=== PATIENT | male | born 1970 | race Caucasian/White ===

== ENCOUNTER 2022-01-20 11:22 | Observation (INO) ==
--- NOTE | 2022-01-01 09:50 | PAT Medication Instructions ---
Medication Instructions Date of Service January 01, 2022 Home Medications Cinnamon 1 tab PO QAM Garlic 1 tab PO QAM Saw [place]vis[place] 1 tab PO QAM Vitamin D 1 tab PO HS Zinc 1 tab PO QAM multivitamin 1 tab PO QAM STOP taking 2 weeks before surgery Cinnamon 1 tab PO QAM Garlic 1 tab PO QAM Saw [place]viso 1 tab PO QAM DO NOT take the morning of surgery Zinc 1 tab PO QAM multivitamin 1 tab PO QAM Take evening before surgery Vitamin D 1 tab PO HS OTHERWISE NOTHING TO EAT OR DRINK AFTER MIDNIGHT Other Notes If you have any questions please call us at [phone] or [phone] or [phone] or [phone]
--- NOTE | 2022-01-05 14:25 | Anesthesiology Consultation ---
Date of Service January 05, 2022 Assessment & Plan (1) Encounter for pre-operative examination: - COVID screening: Per assessment on 01/05/2022: Travel screen negative, no known COVID-19 positive contacts or current COVID-19 related symptoms in past 2 weeks. Patient vaccinated. Surgeon arranging preop COVID testing, scheduled 01/16/2022. Awaiting results. Chart Review Chart Review: Acceptable Risk for Surgery and Patient seen in Pre Admission Testing Teaching & Discussion Pre-Anesthesia Teaching/Discussion Notes: Instructed NPO after midnight before surgery, except medications with 15 cc of water. Medication instructions provided according to the PAT guidelines. History Surgery Operation Date: 01/20/22 10:50 Proposed Procedures p Robotic Laparoscopic Assisted Radical Retropubic Prostatectomy, Possible Open, Possible Pelvic Lymph Node Dissection, Possible Suprapubic Tube Placement - Mina Caballero MD Height/Weight Height: 5 ft 9 in Weight: 89 kg Allergies Allergy/AdvReac Type Severity Reaction Status Date / Time No Known Allergies Allergy Verified 01/01/22 08:00 Medications Home Medications Medication Instructions Recorded Confirmed Last Taken Cinnamon 500 tab PO QAM 01/01/22 01/05/22 Unknown Garlic 1,000 mg PO QAM 01/01/22 01/05/22 Unknown Saw [place] 450 mg PO QAM 01/01/22 01/05/22 Unknown Vitamin D 25 mg PO HS 01/01/22 01/05/22 Unknown Zinc 50 mg PO QAM 01/01/22 01/05/22 Unknown multivitamin 1 tab PO QAM 01/01/22 01/01/22 Unknown Past Medical History Medical History Cancer Prostate History of COVID-19 Dx 08/2020 > loss of smell > resolved Patient denies h/o stroke, seizures, heart attack, heart failure, DM, HTN, blood clots or blood transfusions. Exercise / Class Metabolic Activity II 4-5 Yardwork/Stairs/Walk up hill (denies CP or SOB when walks 3 miles daily) Past Family History Family History Father Prostate cancer Non-Hodgkin lymphoma Grandfather Prostate cancer Past Surgical History Surgical History History of colonoscopy AGE 49 No history of previous surgery Past Anesthesia History No Hx of Anesthesia Complications and No Family Hx of Anesthesia Complications History of PONV No Hx of PONV and No Hx of Motion Sickness Social History Smoking Status: Never smoker Do You Dip or Chew Tobacco: No Hx Alcohol Use: No Hx Substance Use: No Review of Systems Patient denies chest pain, shortness of breath, dyspnea on exertion, snoring, witnessed apneas, reflux, fever, chills, cough, wheezing, or palpitations. Physical Exam Vital Signs Vitals BP 143/91 P 67 TEMP 98.3 SP02 100% on RA RESP 16 Physical Full cervical extension range of motion without pain Full TMJ range of motion TMD 3.5 finger breaths Mallampati Score 2 Dentition: intact, one missing teeth-left back tooth; denies chipped or loose teeth, caps/crowns, implants or bridges Lungs: normal respiratory effort. Clear throughout to auscultation, no adventiti ous breath sounds Cardiac: regular rate and rhythm, no murmurs noted Carotid arteries: negative bruit bilat Lab Results Anesthesia Preop Results Results Anesthesia Widget: WBC 6.16 K/uL (4.8-10.8) 01/05/22 Hgb 15.5 g/dL (14.0-18.0) 01/05/22 Hct 45.1 % (42-52) 01/05/22 Plt 293 K/uL (130-400) 01/05/22 Na 142 mmol/L (136-145) 01/05/22 K 4.0 mmol/L (3.5-5.1) 01/05/22 Cl 108 mmol/L (98-107) H 01/05/22 CO2 28 mmol/L (21-32) 01/05/22 BUN 18 mg/dl (6-23) 01/05/22 Creat 1.04 mg/dl (0.6-1.4) 01/05/22 Glucose Level 101 mg/dl (70-99(Fasting)) H 01/05/22 PT 11.3 Seconds (9.0-12.0) 01/05/22 PTT 36.4 Seconds (21.0-31.0) H 01/05/22 INR 1.1 (0.9-1.1) 01/05/22 Urine Color Yellow 01/05/22 Urine Appearance Clear (Clear) 01/05/22 Urine pH 5.5 (4.5-7.5) 01/05/22 Urine Specific [place] 1.022 (1.000-1.030) 01/05/22 Urine Protein Negative (Negative) 01/05/22 Urine Glucose (UA) Negative (Negative) 01/05/22 Urine Ketones Negative (Negative) 01/05/22 Urine Blood Trace (Negative) H 01/05/22 Urine Nitrite Negative (Negative) 01/05/22 Urine Bilirubin Negative (Negative) 01/05/22 Urine Urobilinogen Negative (Negative) 01/05/22 Urine Leukocyte Esterase Negative (Negative) 01/05/22 Urine WBC (Auto) 0 /hpf (0-5) 01/05/22 Urine RBC (Auto) 0-4 /hpf (0-4) 01/05/22 Urine Hyaline Casts (Auto) 0 /lpf (0-5) 01/05/22 Urine Epithelial Cells (Auto) 0-5 /lpf (0-5) 01/05/22 Urine Bacteria (Auto) Negative (Negative) 01/05/22 Blood Type AB Positive 01/05/22 Antibody Screen NEGATIVE 01/05/22 Testing Electrocardiogram Date: 01/05/22 NSR, rate 63 bpm Chest X-Ray Date: 01/05/22 FINDINGS: PA and lateral chest radiographs are obtained. No prior studies are available for comparison at the time of dictation. The cardiomediastinal silhouette is unremarkable. The lungs and pleural spaces are clear. There is no pneumothorax. The bony thorax appears intact. IMPRESSION: No active disease in the chest.
[~2022-01-20 11:22] MED LIST: HEPARIN SOD 5,000 UNIT/0.5 ML VIAL SQ SCH; LACTATED RINGER'S 1,000 ML IV SCH; MIDAZOLAM HCL 1 MG/ML 2ML VIAL ONE; ceFAZolin 2000MG 2,000 MG/15 ML SYR IV SCH; fentaNYL citrate 100 MCG/2 ML VIAL ONE
--- NOTE | 2022-01-20 11:36 | History & Physical Bridge Note ---
Date of Service January 20, 2022 History & Physical Bridge Note I have examined the patient, reviewed the History & Physical and in the interval since the performance of the History & Physical I have noted the following changes of clinical significance: no changes noted
[2022-01-20] MEDS ORDERED: fentaNYL citrate 100 MCG/2 ML VIAL IV PRN (12:07)
[2022-01-20] MEDS ORDERED: ATROPINE SULFATE 0.1 MG/ML 10ML SYR IV PRN (12:07)
[2022-01-20] MEDS ORDERED: ePHEDrine sulfate 50 MG/ML AMP IV PRN (12:07)
[2022-01-20] MEDS ORDERED: HYDROmorphone INJ 2 MG/ML SYR/VIAL IV PRN (12:07)
[2022-01-20] MEDS ORDERED: ONDANSETRON INJ 2 MG/ML 2 ML VIAL IV PRN ×2 (12:07→17:51)
[2022-01-20] MEDS ORDERED: BUPIVACAINE 0.5 % 5 MG/1 ML MPF 30ML VIAL ONE (12:24)
[2022-01-20] MEDS ORDERED: HYDROmorphone INJ 2 MG/ML SYR/VIAL ONE (12:57)
[2022-01-20] MEDS ORDERED: PROPOFOL IV EMULSION 10 MG/ML 20 ML VIAL IV ONE (13:01)
[2022-01-20] MEDS ORDERED: ONDANSETRON INJ 2 MG/ML 2 ML VIAL ONE ×2 (13:01→13:02)
[2022-01-20] MEDS ORDERED: ROCURONIUM BROMIDE 10 MG/ML 5 ML VIAL IV ONE ×5 (13:01→15:38)
[2022-01-20] MEDS ORDERED: NEOSTIGMINE METHYLSULFATE 1 MG/ML 10ML VIAL ONE (13:01)
[2022-01-20] MEDS ORDERED: LARYING-O-JET KIT (LTA) ONE (13:01)
[2022-01-20] MEDS ORDERED: GLYCOPYRROLATE 0.2 MG/ML VIAL ONE (13:01)
[2022-01-20] MEDS ORDERED: DEXAMETHASONE SOD INJ 4 MG/ML VIAL ONE (13:01)
[2022-01-20] MEDS ORDERED: LIDOCAINE 2% 2 ML VIAL/AMP(20MG/ML) INFIL ONE (13:01)
[2022-01-20] MEDS ORDERED: ePHEDrine sulfate 50 MG/ML SYR ONE (13:34)
[2022-01-20] MEDS ORDERED: PHENYLEPHRINE 100MCG/ML 5ML SYR ONE (13:34)
[2022-01-20] MEDS ORDERED: FLOSEAL HEMOSTATIC MATRIX 10ML TOP ONE (13:40)
[2022-01-20] MEDS ORDERED: SURGICEL ABSORB HEMOSTAT 2IN X 14IN TOP ONE (13:57)
--- NOTE | 2022-01-20 16:20 | Operative Report ---
[facility] Post Operative Report Pre & Post Diagnosis Operation Date: 01/20/22 12:45 Pre-Op Diagnosis: Prostate Cancer Post-Op Diagnosis: Prostate Cancer I identified the patient and participated in the time-out.: Yes Procedure Operation Date: 01/20/22 12:45 Actual Procedures p Robotic assisted Laparoscopic Prostatectomy(Not Applicable) - Mina Caballero MD Surgeon Brett Caballero MD Home Care Music Therapist Co-surgeon Dr. Tony Mejía; Home Care Music Therapist Ariella Vicente Estimated Blood Loss 100 Findings Consistent with Post-Op Diagnosis Specimens 1. Periprostatic fat 2. Prostate and seminal vesicles 3. Apical margin prostate Description of Procedure The patient was identified in the preoperative holding area, appropriate informed consents were reviewed and completed, and he was transported to the operating suite. Subcutaneous heparin was administered in the pre-operative holding area. Upon arrival in the operating suite, he received appropriate antibiotics and general anesthesia. He was positioned in dorsal lithotomy, a B&O suppository was inserted after digital rectal exam, and he was prepped and draped in standard fashion. A Rodriguez catheter was inserted in the sterile field. A Veress needle was passed per umbilicus with uniform insufflation of the abdomen to 15mmHg. He was placed in steep Trendelenburg position. A periumbilical incision was then made to accommodate a 12mm Visiport with 10mm 0degree laparoscope. Inspection of the abdomen was carried out, and there was no evidence of traumatic entry or injury secondary to the Veress needle. After confirming a clear anterior abdominal wall, ports were subsequently placed in standard robotic prostatectomy fashion without incident. To begin the robotic portion of the case, the left lateral aspect of the sigmoid was mobilized off of the left pelvic side wall to allow the pouch of Jorge Luis to be appropriately visualized. I then made an incision in the pouch of Jorge Luis, overlying the seminal vesicles. Both SVs as well as the ampullae of the vasa were entirely dissected, with the vasa transected 3cm from the prostate. The medial umbilical ligaments were then controlled with bipolar electrocautery just inferior to the umbilicus. Following cauterization, they were divided utilizing monopolar cautery. A peritoneal incision was carried from this loc ation to the medial aspect of the internal inguinal rings bilaterally with care to avoid opening through the ring. This incision was concluded when the vas deferens was reached. Dissection of the bladder and prostate off of the posterior aspect of the pubic arch was completed allowing full visualization of the prostate. The fat overlying the prostate was removed en bloc and passed off the table as a specimen labeled "periprostatic fat". The endopelvic fascia was cleared during this portion of the procedure, and subsequently opened - first on the right and then the left. The incision through the endopelvic fascia began near the prostate-bladder junction and was carried to the apex with extreme care to preserve all lateral levator musculature as well as the periurethral musculature and sphincter complex. I additionally preserved the puboprostatic ligaments. I then controlled the DVC with a 3-0 V-lock suture in overlapping/figure of 8 fashion. My attention then returned to the prostate, with identification of the bladder neck aided by gentle traction on the Rodriguez catheter and lateral to medial pressure at the presumed level of the bladder neck with the robotic instruments. An anterior cystotomy was made, the Rodriguez balloon deflated and the catheter guided through the incision to allow anterior retraction. I attempted to preserve maximal bladder neck musculature as I circumferentially dissected around the bladder neck. After incision through the posterior aspect of the mucosa, the dissection was carried through detrusor muscle until the bilateral ampullae of the vasa were identified. The previously dissected vasa and SVs were brought through the incision and used to elevated the prostate anteriorly. A posterior plane behind the prostate was then developed - splitting Denonvilliers's fascia. This dissection was carried as far as possible towards the apex as well as far as possible laterally. An incision in the lateral prostatic fascia was then made bilaterally to facilitate control of the vascular pedicles and preservation of the nerve bundles. Vasculature running along the posterior/lateral aspect of the prostate was preserved as well as the tissue containing the nerves. The pedicles were then controlled with a series of Weck clips. The apical attachments of the prostate were remaining at that stage. The DVC was divided after control with bipolar cautery over the prostate. Continuous inspection from anterior and lateral views allowed me to closely follow the apical contour of the prostate and maximally preserve urethral length and tissu e. I did take a small amount of tissue adjacent to the urethra and sent it off the table as a specimen labeled apical margin of the prostate. The prostate was entirely freed at that point, and collected in an EndoCatch bag before being moved out of the field of vision. Hemostasis was confirmed and anastomosis of the bladder and urethra was completed utilizing a double armed V- Lock stitch. A new Rodriguez catheter was inserted and the anastomosis tested with irrigation. There was no evidence of leak. The robot was undocked, the specimen extracted through expansion of the wagner- umbilical camera port. The fascia was closed with a series of 0-PDS figure of 8 stitches. The right insurance administrative assistant port was closed in two layers - with a figure of 8 0-Vicryl to reapproximate the fascia followed by 4-0 Monocryl to close the skin. Monocryl was used to close all other skin incisions. All wounds were dressed with Dermabond. The case was concluded and the patient taken to the PACU in stable condition. Dr. Tony Mejía served as a co-surgeon throughout this case. Ariella Vicente assisted at the bedside from incision to closure. I attest to the content of the Intraoperative Record and any orders documented therein. Any exceptions are noted below.
[2022-01-20 16:48] LABS: Basophils # (auto) 0.02 K/uL (0-0.2); Basophils % (auto) 0.2 %; Eosinophils # (auto) 0.01 K/uL (0-0.5); Eosinophils % (auto) 0.1 %; Hemoglobin 15.2 g/dL (14.0-18.0); Immature Granulocytes # (auto) 0.02 K/uL (0.00-0.02); Immature Granulocytes % (auto) 0.2 %; Lymphocytes % (auto) 4.6 %; Mean Corpuscular Hemoglobin 30.6 pg (25-34); Mean Corpuscular Volume 90.7 fL (80-100); Mean Platelet Volume 10.4 fL (7.4-10.4); Monocytes # (auto) 0.19 K/uL (0.11-0.59); Monocytes % (auto) 1.5 %; Neutrophils # (auto) 12.24 K/uL (1.4-6.5); Neutrophils % (auto) 93.4 %; Platelet Count 244 K/uL (130-400); RDW Coefficient of Variation 12.4 % (11.5-14.5); RDW Standard Deviation 41.2 fL (36.4-46.3); Red Blood Count 4.96 M/uL (4.7-6.1); White Blood Count 13.08 K/uL (4.8-10.8)
[2022-01-20 16:54] LABS: Mean Corpuscular Hgb Conc 33.8 g/dL (32-36)
--- NOTE | 2022-01-20 17:11 | Anesthesiology Progress Note ---
Date of Service January 20, 2022 Anesthesia Post Procedure Vital Signs Vital Signs: Temp Pulse Pulse Resp BP BP Pulse Ox 01/20/22 16:55 36.9 C 95 H 20 137/81 94 01/20/22 16:45 95 H 14 147/83 H 96 01/20/22 16:35 95 H 17 144/87 H 100 01/20/22 16:25 92 H 15 133/80 100 01/20/22 16:15 37.2 C 98 H 14 138/105 H 98 01/20/22 11:47 36.9 C 96 H 20 157/92 H 99 Transfer of Care Handoff Completed per policy Notes Mental Status: alert / awake / arousable Patient Amnestic to Procedure: Yes Nausea / Vomiting: adequately controlled Pain: adequately controlled Airway Patency, RR, SpO2: stable & adequate BP & HR: stable & adequate Hydration State: stable & adequate Anesthetic Complications: no major complications apparent
[2022-01-20 17:20] LABS: BUN Creatinine Ratio 12.1 (10-20); Creatinine Clr Calc Pharmacy 89.1 ml/min; Est GFR (Non-African American) 79.4 ml/min; Potassium 4.2 mmol/L (3.5-5.1)
[2022-01-20] MEDS ORDERED: oxyCODONE HCL IR 5 MG TAB (IMMEDIATE RELEASE) PO PRN ×2 (17:51)
[2022-01-20] MEDS ORDERED: MoRPHine SULFATE 4 MG/ML 1 ML CARP\\VIAL IV PRN (17:51)
[2022-01-20] MEDS ORDERED: MoRPHine SULFATE 2 MG/ML CARP IV PRN (17:51)
[2022-01-20] MEDS: ACETAMINOPHEN 325 MG TAB PO SCH ×2 (18:38→23:41)
[2022-01-20] MEDS: LACTATED RINGER'S 1,000 ML IV SCH (18:38)
[2022-01-20] MEDS: ceFAZolin 2000MG 2,000 MG/15 ML SYR IV SCH (20:26)
[2022-01-20] MEDS: HEPARIN SOD 5,000 UNIT/0.5 ML VIAL SQ SCH (20:26)
[2022-01-21] MEDS: LACTATED RINGER'S 1,000 ML IV SCH (04:38)
[2022-01-21] MEDS: ceFAZolin 2000MG 2,000 MG/15 ML SYR IV SCH (04:39)
[2022-01-21] MEDS: ACETAMINOPHEN 325 MG TAB PO SCH ×2 (05:35→11:33)
--- NOTE | 2022-01-21 06:47 | Urology Progress Note ---
Date of Service January 21, 2022 Assessment & Plan (1) Prostate cancer: Plan: 51-year-old male status post robotic prostatectomy on 01/20/2022 Plan: Patient doing well. Follow-up morning labs. Mildly tachycardic but suspect this is reactive. Continue to observe at this point. Continue diet. Encourage ambulation Maintain Rodriguez catheter to drainage Pending labs and how he feels later this morning, expect discharge around midday Return to clinic in 5 days for Rodriguez catheter removal Admission and Anticipated Discharge Date Admission Date: January 20, 2022 Subjective No acute issues overnight. Patient reports feeling well. Mildly tachycardic but otherwise adequate urine output and other vital stable. Denies any pain. Does report some pressure from catheter. Tolerating diet and has been out of bed. Anxious to go home this morning. Review of Systems Review of Systems: 14 point review of systems negative outside of what is listed above in HPI Physical Exam Physical Exam: General: Alert and oriented, no acute distress HEENT: Normocephalic, mucous membranes moist Pulmonary: Nonlabored respirations Abdomen: Soft, appropriately tender, nondistended. Port sites clean dry and intact : Rodriguez catheter draining clear urine. Extremities: Moves all 4 spontaneously Neuro: No gross deficits Skin: Warm, dry, no rashes noted Results & Data ([facility]) Vital Signs (Past 12 Hours) Vital Signs Temp Pulse Resp BP BP Pulse Ox 01/21/22 02:26 37.3 C 103 H 18 111/69 94 01/20/22 23:10 37.2 C 97 H 18 121/75 94 01/20/22 20:33 36.8 C 104 H 18 131/82 95 01/20/22 19:23 37 C 100 H 18 122/83 95 PG Care Time/CCT Total # of Minutes Spent Total Time Spent with Patient: Total time spent is greater than 50% in coordination of care (as documented) at patient's floor/unit and/or counseling patient: [place] [address] Subseq Hosp Care Lvl 2 Patient Type Established Diagnoses Prostate cancer C61
[2022-01-21 07:22] LABS: Basophils # (auto) 0.01 K/uL (0-0.2); Basophils % (auto) 0.1 %; Eosinophils # (auto) 0.01 K/uL (0-0.5); Eosinophils % (auto) 0.1 %; Hematocrit (blood only) 40.2 % (42-52); Hemoglobin 13.4 g/dL (14.0-18.0); Immature Granulocytes # (auto) 0.02 K/uL (0.00-0.02); Immature Granulocytes % (auto) 0.2 %; Lymphocytes # (auto) 1.21 K/uL (1.2-3.4); Lymphocytes % (auto) 9.9 %; Mean Corpuscular Hemoglobin 30.2 pg (25-34); Mean Corpuscular Hgb Conc 33.3 g/dL (32-36); Mean Corpuscular Volume 90.7 fL (80-100); Mean Platelet Volume 10.4 fL (7.4-10.4); Monocytes % (auto) 9.8 %; Neutrophils % (auto) 79.9 %; Platelet Count 237 K/uL (130-400); RDW Coefficient of Variation 12.5 % (11.5-14.5); Red Blood Count 4.43 M/uL (4.7-6.1); White Blood Count 12.25 K/uL (4.8-10.8)
[2022-01-21 07:53] LABS: BUN Creatinine Ratio 10.6 (10-20); Calcium 8.7 mg/dl (8.5-10.1); Creatinine Clr Calc Pharmacy 91.7 ml/min; Est GFR (African American) 95.2 ml/min; Est GFR (Non-African American) 82.2 ml/min; Potassium 4.1 mmol/L (3.5-5.1)
[2022-01-21] MEDS: HEPARIN SOD 5,000 UNIT/0.5 ML VIAL SQ SCH (08:07)
--- NOTE | 2022-01-21 12:07 | Discharge Summary ---
Date of Service January 21, 2022 Admission HPI Per Admitting Provider 51-year-old male with PSA of 4.2 and [place] 3+3 equal 6 prostate cancer. Presents today for prostatectomy. Admission Exam Per Admitting Provider General: Alert and oriented, no acute distress HEENT: Normocephalic, mucous membranes moist Pulmonary: Nonlabored respirations Abdomen: Nondistended Extremities: Moves all 4 spontaneously Neuro: No gross deficits Skin: Warm, dry, no rashes noted Principal Diagnosis Prostate Cancer Discharge Exam General: Alert and oriented, no acute distress HEENT: Normocephalic, mucous membranes moist Pulmonary: Nonlabored respirations Abdomen: Soft, appropriately tender, nondistended. Port sites clean dry and intact : Rodriguez catheter draining clear urine. Extremities: Moves all 4 spontaneously Neuro: No gross deficits Skin: Warm, dry, no rashes noted Discharge Data Allergies Allergy/AdvReac Type Severity Reaction Status Date / Time No Known Allergies Allergy Verified 01/20/22 11:45 Procedures Performed Operation Date: 01/20/22 12:45 Actual Procedures p Robotic assisted Laparoscopic Prostatectomy(Not Applicable) - Mina Caballero MD Hospital Course (1) Prostate cancer: 51-year-old male status post robotic prostatectomy on 01/20/2022 Plan: Patient doing well. Follow-up morning labs. Mildly tachycardic but suspect this is reactive. Continue to observe at this point. Continue diet. Encourage ambulation Maintain Rodriguez catheter to drainage Pending labs and how he feels later this morning, expect discharge around midday Return to clinic in 5 days for Rodriguez catheter removal Patient reassessed at 1050. Ambulating without difficulty. Tolerating diet. Lab work reviewed and as expected post operatively. Patient is ready for discharge on POD#1. D/c to home with Rodriguez catheter. Orders placed. Expected clinical course reviewed, all questions answered. Follow-up appointments in place. Total Time Total Time Spent Total Time Spent (In Minutes): 29 Discharge Plan Discharge Items Patient Disposition: Home - Self-Care Reason For Visit: POST OP Discharge Diagnosis: Prostate cancer Activity: Per Instructions section Lifting: No more than 10 pounds Bathing: No limitations Bathing Comment: Can shower now, no tub baths Sexual Activity: After two weeks Exercise/Sports: None Driving/Machine Use: After catheter removed if not taking narcotics Weightbearing: Full weightbearing Non-emergency contact: Urologist Call non-emergency contact if: you have any medication questions, your pain is worsening, your temperature is above 101, your wound has increased redness, your wound has increased drainage and your wound pain has increased Follow-up/Referrals: Lila Kaplan D.O. [Primary Care Provider] - [facility],RN [FAKE FOR SCHEDULES] - 01/27/22 9:30 am Diet: Regular Addtl Attending Provider Instructions: Please take all medications as prescribed and keep follow-ups as scheduled. Please call our office at [phone] with any questions, concerns or need to reschedule appointments for any reason. We are happy to assist you. While catheter is in place, please wash with warm soapy water and a fresh washcloth twice a day with mild bar soap (Dove, Dial, etc.). Your nursing visit appointment to have your catheter removed should already be made, if you have any question regarding this, please call our office. Please take tylenol and motrin as needed for pain control. If you require additional narcotics, please call our office and we can provide a prescription You will be discharged home with a stool softener (colace) and a medication to help with catheter discomfort (oxybutyin). This may cause dry eyes, dry mouth, and constipation so only take as needed. It is okay to take AZO (available over the counter) as needed for a few days to relieve burning with urination. This may cause your urine or feces to turn an orangish-color. This is expected. The only exception is if you have been prescribed Pyridium (phenazopyridine), this is the same medication and should not take AZO be taken in addition to prescription version. Some blood is to be expected in your urine as you heal, you may even see recurrences of blood in your urine for up to 4-6 months after your procedure. Drink plenty of fluids, avoid sexual or strenuous exercise and do not lift >25 pounds until your follow-up. Call [facility] Urology at [phone] promptly if you experience: Fever of 101F or greater Pain thats not controlled with medicine Trouble urinating or inability to urinate Dark, bloody urine for more than 12 hours Pending Studies at Discharge: Yes Studies:: Pathology Stand-Alone Forms: [facility], Smoking Cessation Medications and DC Order Prescriptions: New oxybutynin chloride [Ditropan XL] 5 mg tablet extended release 24 hr 5 mg PO DAILY Qty: 7 RF: 0 docusate sodium [Col-Rite] 100 mg capsule 100 mg PO BID Qty: 30 RF: 0 oxycodone 5 mg capsule 5 mg PO Q6H Qty: 10 RF: 0 Continued multivitamin Tablet 1 tab PO QAM RF: 0 Cinnamon 500 tab PO QAM RF: 0 Garlic 1,000 mg PO QAM RF: 0 Saw [place] 450 mg PO QAM RF: 0 Vitamin D 25 mg PO HS RF: 0 Zinc 50 mg PO QAM RF: 0 Discharge Orders: Discharge Order (Routine); Ordered 01/21/22 Ordered By: Ariella Vicente Admission Data Admit Date/Time: 01/20/22 16:00 Attending Provider: Mina Caballero Admit Provider: Mina Caballero Primary Care Provider: Lila Kaplan Other Interventions: Discharge Summary Assessment (RN) Last Done: 01/21/22 11:43 Coding Level of Care Code D/C DAY MANAGEMENT <30 MINS Diagnoses Prostate cancer C61
== END 2022-01-21 12:35 | disposition home or self-care (01) ==
LOC: ASU 11:22 → INTOOBSV 16:00 → 3N 16:00